=== PATIENT | female | born 1955 | race Caucasian/White ===

== ENCOUNTER → 2022-10-16 13:31 | Outpatient (BNVA) | payer MEDICARE, MEDICAID, SELFPAY | PROVIDERS: PCP Family Medicine; Referring Provider Family Medicine; Visit Provider Orthopaedic Surgery | DX: S32.000A Wedge compression fracture of unspecified lumbar vertebra, initial encounter for closed fracture (principal); T14.8XXA Other injury of unspecified body region, initial encounter; X50.0XXA Overexertion from strenuous movement or load, initial encounter | CPT/HCPCS: 99204 ==

== ENCOUNTER 2022-10-22 13:53 | Outpatient (CLI) | payer MEDICARE, MEDICAID, SELFPAY ==
--- NOTE | 2022-10-22 14:30 | MR_ITS ---
WS: [id number] MRI LUMBAR SPINE NONCONTRAST HISTORY: L1 compression fracture COMPARISON: Prior CT 09/07/2022 and lumbar spine radiographs 10/03/2022 TECHNIQUE: Sagittal and axial multisequence imaging is submitted. Marked increase in thoracic kyphosis. New T8 compression fracture without retropulsion. 30% compressi on fracture. New since 09/07/2022. T12 20% compression fracture with marrow edema and no retropulsion. This compression fracture is new since 09/07/2022 also. Biconcave 50% L1 compression fracture is chronic. No marrow edema. Disc spaces and vertebral body heights are well-preserved. Conus terminates normally at L1-2 disc level. L1-L2: Normal. L2-L3: Mild disc bulging. No stenosis. L3-L4: Moderate annular disc bulging with a central annular fissure. Mild ligamentum flavum and facet arthritis. Mild encroachment upon the subarticular recesses and the traversing L4 nerve roots. L4-L5: Mild disc bulging with mild subarticular recess encroachment upon the traversing L5 nerve root s. No displacement. L5-S1: Mild disc bulging with no central disc protrusion. No stenosis. Mild facet arthritis. Visualized retroperitoneal structures are negative. MR/MR lumbar spine wo con* [id number] IMPRESSION: 1. Acute T8 compression fracture without retropulsion x 30%. New since 09/08/19 23. 2. Acute T12 compression fracture x 20% with no retropulsion. New since 023. 3. Chronic L1 compression fracture x 50%. 4. Mild subarticular recess encroachment at L3-4 and L4-5. Mild encroachment u nato the traversing L4 and L5 nerve roots.
== END 2022-10-22 13:54 | disposition home or self-care (01) ==
PROVIDERS: PCP Family Medicine; Visit Provider Orthopaedic Surgery
DX: S22.060A Wedge compression fracture of T7-T8 vertebra, initial encounter for closed fracture (principal); S22.080A Wedge compression fracture of T11-T12 vertebra, initial encounter for closed fracture; S32.010D Wedge compression fracture of first lumbar vertebra, subsequent encounter for fracture with routine healing; X58.XXXA Exposure to other specified factors, initial encounter
CPT/HCPCS: 72148

== ENCOUNTER → 2022-10-23 08:23 | Outpatient (BNVA) | payer MEDICARE, MEDICAID, SELFPAY | PROVIDERS: PCP Family Medicine; Visit Provider Orthopaedic Surgery | DX: Z09 Encounter for follow-up examination after completed treatment for conditions other than malignant neoplasm (principal) | CPT/HCPCS: 99214 ==

== ENCOUNTER → 2022-11-20 12:46 | Outpatient (BNVA) | payer MEDICARE, MEDICAID, SELFPAY | PROVIDERS: PCP Family Medicine; Visit Provider Orthopaedic Surgery | DX: Z09 Encounter for follow-up examination after completed treatment for conditions other than malignant neoplasm (principal); S22.060A Wedge compression fracture of T7-T8 vertebra, initial encounter for closed fracture; S22.080A Wedge compression fracture of T11-T12 vertebra, initial encounter for closed fracture; X58.XXXA Exposure to other specified factors, initial encounter | CPT/HCPCS: 72070; 99213 ==